=== PATIENT | male | born 1985 | race Caucasian/White ===

== ENCOUNTER 2019-08-26 18:16 | Emergency (ER) | payer BC ==
[~2019-08-26] VITALS: Ht 170.2 cm; Wt 63.5 kg
[~2019-08-26 18:16] MED LIST: CIPROFLOXACIN500 M1 PO; NOHOMEMEDICATIONS; NORCO 5-325 TA1 EACH PO
[2019-08-26] MEDS ORDERED: FLOMAX0.4 MG PO (18:37)
[2019-08-26] MEDS ORDERED: PREDNISONE 20 M20 M1 PO (19:36)
[2019-08-26 20:17] VITALS: BP 117/68
== END 2019-08-26 20:17 | disposition home or self-care (01) ==
LOC: M.ERS 18:16
DX: J20.9 Acute bronchitis, unspecified (principal); L25.9 Unspecified contact dermatitis, unspecified cause; Z88.1 Allergy status to other antibiotic agents; Z88.0 Allergy status to penicillin